=== PATIENT | female | born 1980 | race Caucasian/White ===

== ENCOUNTER 2017-10-04 10:23 | Emergency (ER) | payer SELFPAY ==
[2017-10-04 12:06] LABS: Eosinophils % (Auto) 0.9 % (0.0-4.3)
[2017-10-04 12:18] LABS: Alanine Aminotransferase 28 units/L (7-56); Albumin/Globulin Ratio 1.6 %; Alkaline Phosphatase 65 units/L (35-129); Anion Gap 21 mmol/L; BUN/Creatinine Ratio 23; Blood Urea Nitrogen 9 mg/dL (7-17); Calcium 8.9 mg/dL (8.4-10.2); Carbon Dioxide 18 mmol/L (22-30); Chloride 102.9 mmol/L (98-107); Glucose 179 mg/dL (65-100); Potassium 4.6 mmol/L (3.6-5.0); Sodium 137 mmol/L (137-145); Total Protein 6.5 g/dL (6.3-8.2)
[2017-10-04 12:22] LABS: Bilirubin,Direct < 0.2 mg/dL (0-0.2); Bilirubin,Indirect 0.1 mg/dL
[2017-10-04 12:24] LABS: Hematocrit 33.3 % (30.3-42.9); Hemoglobin 10.9 gm/dl (10.1-14.3); Mean Corpuscular HGB Conc 33 % (30-34); Mean Corpuscular Hemoglobin 24 pg (28-32); Mean Corpuscular Volume 72 fl (79-97); Platelet Count 379 K/mm3 (140-440); Red Blood Count 4.61 M/mm3 (3.65-5.03); Red Cell Distribution Width 18.5 % (13.2-15.2); White Blood Count 7.9 K/mm3 (4.5-11.0)
[2017-10-04 12:25] LABS: Basophils % (Auto) 0.4 % (0.0-1.8)
--- NOTE | 2017-10-04 12:31 | Emergency Department Report ---
ED General Adult HPI - General Stated complaint: SOB Time Seen by Provider: 10/04/17 10:55 Source: EMS Mode of arrival: Stretcher Limitations: No Limitations - History of Present Illness Initial comments: Patient states that she's had episodes of hyperventilation associated with passing out before. [place] this [place] 2 [place] without recent travel. Apparently she was in the room when she states she started breathing fast and passed out. EMS and/or the police had to breakdown the door. She was found conscious and transported to the emergency department as I am aware with acceptably normal vital signs. Initially on arrival she refused any diagnostic testing. However she was persuaded to do so later on. In fact initially she refused vital signs. She denies a history of any mental health problems other than hyperventilation. She denies being on any previous medications. She states that she had an a few months ago and 2 C-sections in the past but otherwise no hospitalizations. She states that she has heavy periods and has been previously told she is anemic. -: Gradual Quality: other (patient does not complain of pain at all.) Consistency: now resolved Improves with: none Worsens with: none Associated Symptoms: denies other symptoms Treatments Prior to Arrival: none - Related Data Previous Rx's Medication Instructions Recorded Last Taken Type Ferrous Gluconate [Fergon 325 MG 325 mg PO TID #20 tablet 10/04/17 Unknown Rx tab] Allergies Allergy/AdvReac Type Severity Reaction Status Date / Time No Known Allergies Allergy Verified 10/04/17 11:22 ED Review of Systems ROS: Stated complaint: SOB Other details as noted in HPI Constitutional: denies: chills, fever Eyes: denies: eye pain, eye discharge, vision change ENT: denies: ear pain, throat pain Respiratory: shortness of breath. denies: cough, wheezing Cardiovascular: denies: chest pain, palpitations Endocrine: no symptoms reported Gastrointestinal: denies: abdominal pain, nausea, diarrhea Genitourinary: denies: urgency, dysuria, discharge Musculoskeletal: denies: back pain, joint swelling, arthralgia Skin: denies: rash, lesions Neurological: denies: headache, weakness, paresthesias Psychiatric: denies: anxiety, depression Hematological/Lymphatic: denies: easy bleeding, easy bruising ED Past Medical Hx - Past Medical History Previous Medical History?: Yes - Surgical History Past Surgical History?: Yes Additional Surgical History: x2; one ; one spontaneous - Social History Smoking Status: Never Smoker Substance Use Type: None - Medications Home Medications: Home Medications Medication Instructions Recorded Confirmed Last Taken Type Ferrous Gluconate [Fergon 325 MG 325 mg PO TID #20 tablet 10/04/17 Unknown Rx tab] ED Physical Exam - General Limitations: No Limitations General appearance: alert, in no apparent distress - Head Head exam: Present: atraumatic, normocephalic - Eye Eye exam: Present: normal appearance, PERRL, EOMI. Absent: scleral icterus - ENT ENT exam: Present: mucous membranes moist - Neck Neck exam: Present: normal inspection. Absent: tenderness, meningismus - Respiratory Respiratory exam: Present: normal lung sounds bilaterally. Absent: respiratory distress - Cardiovascular Cardiovascular Exam: Present: regular rate, normal rhythm. Absent: systolic murmur, diastolic murmur, rubs, gallop - GI/Abdominal GI/Abdominal exam: Present: soft, normal bowel sounds. Absent: distended, tenderness, guarding, rebound, rigid - Extremities Exam Extremities exam: Present: normal inspection - Back Exam Back exam: Present: normal inspection - Neurological Exam Neurological exam: Present: alert, oriented X3, CN II-XII intact. Absent: motor sensory deficit - Psychiatric Psychiatric exam: Present: normal mood, flat affect - Skin Skin exam: Present: warm, dry, intact, normal color. Absent: rash ED Course Vital Signs 10/04/17 10/04/17 10/04/17 10:58 11:01 11:04 Temperature 98.7 F Pulse Rate 65 66 72 Respiratory 32 H 23 33 H Rate Blood Pressure 105/70 Blood Pressure 105/70 [Left] O2 Sat by Pulse 100 Oximetry 10/04/17 10/04/17 10/04/17 11:15 11:18 11:30 Temperature Pulse Rate 70 72 Respiratory 21 19 20 Rate Blood Pressure 109/61 105/66 Blood Pressure [Left] O2 Sat by Pulse 100 100 100 Oximetry 10/04/17 10/04/17 10/04/17 11:45 12:00 12:15 Temperature Pulse Rate 71 67 68 Respiratory 26 H 22 23 Rate Blood Pressure 112/76 105/67 103/71 Blood Pressure [Left] O2 Sat by Pulse 100 100 100 Oximetry 10/04/17 10/04/1710/04/17 12:30 12:45 13:00 Temperature Pulse Rate 69 71 89 Respiratory 23 22 34 H Rate Blood Pressure 110/63 108/66 125/73 Blood Pressure [Left] O2 Sat by Pulse 100 100 100 Oximetry - Reevaluation(s) Reevaluation #1: Patient was observed in the emergency department. She literally had no complaints. Pulse oximetry was 100 100%. Her heart rate was in the 70s. She was a bit anemic but otherwise her laboratory testing was largely unremarkable. She was discharged in stable condition. 10/04/17 14:01 ED Medical Decision Making - Lab Data Result diagrams: 10/04/17 11:42 10/04/17 11:42 Laboratory Results - last 24 hr 10/04/17 10/04/17 11:42 11:42 [place] % (Auto) 7.1 Eos % (Auto) 0.9 [place] # 0.6 Eos # 0.1 Baso # 0.0 Seg Neutrophils % 61.5 Seg Neutrophils # 4.9 Sodium 137 Potassium 4.6 Chloride 102.9 Carbon Dioxide 18 L Anion Gap 21 BUN 9 Creatinine 0.4 L Estimated GFR > 60 BUN/Creatinine Ratio 23 Glucose 179 H Calcium 8.9 Total Bilirubin 0.30 AST 34 ALT 28 Alkaline Phosphatase 65 Total Protein 6.5 Albumin 4.0 Albumin/Globulin Ratio 1.6 Laboratory Results - last 24 hr 10/04/17 10/04/17 11:42 11:42 WBC 7.9 RBC 4.61 Hgb 10.9 Hct 33.3 MCV 72 L MCH 24 L MCHC 33 RDW 18.5 H Plt Count 379 Lymph % (Auto) 30.1 [place] % (Auto) 7.1 Eos % (Auto) 0.9 Baso % (Auto) 0.4 Lymph # 2.4 [place] # 0.6 Eos # 0.1 Baso # 0.0 Seg Neutrophils % 61.5 Seg Neutrophils # 4.9 Sodium 137 Potassium 4.6 Chloride 102.9 Carbon Dioxide 18 L Anion Gap 21 BUN 9 Creatinine 0.4 L Estimated GFR > 60 BUN/Creatinine Ratio 23 Glucose 179 H Calcium 8.9 Total Bilirubin 0.30 Direct Bilirubin < 0.2 Indirect Bilirubin 0.1 AST 34 ALT 28 Alkaline Phosphatase 65 Total Protein 6.5 Albumin 4.0 Albumin/Globulin Ratio 1.6 Laboratory Results - last 24 hr 10/04/17 10/04/17 10/04/17 11:42 11:42 13:07 WBC 7.9 RBC 4.61 Hgb 10.9 Hct 33.3 MCV 72 L MCH 24 L MCHC 33 RDW 18.5 H Plt Count 379 Lymph % (Auto) 30.1 [place] % (Auto) 7.1 Eos % (Auto) 0.9 Baso % (Auto) 0.4 Lymph # 2.4 [place] # 0.6 Eos # 0.1 Baso # 0.0 Seg Neutrophils % 61.5 Seg Neutrophils # 4.9 Sodium 137 Potassium 4.6 Chloride 102.9 Carbon Dioxide 18 L Anion Gap 21 BUN 9 Creatinine 0.4 L Estimated GFR > 60 BUN/Creatinine Ratio 23 Glucose 179 H Calcium 8.9 Total Bilirubin 0.30 Direct Bilirubin < 0.2 Indirect Bilirubin 0.1 AST 34 ALT 28 Alkaline Phosphatase 65 Total Protein 6.5 Albumin 4.0 Albumin/Globulin Ratio 1.6 Urine Color Yellow Urine Turbidity Clear Urine pH 7.0 Ur Specific [place] 1.010 Urine Protein <15 mg/dl Urine Glucose (UA) >=500 Urine Ketones Tr Urine Blood Neg Urine Nitrite Neg Ur Reducing Substances Not Reportable Urine Bilirubin Neg Urine Ictotest Not Reportable Urine Urobilinogen < 2.0 Ur Leukocyte Esterase Neg Urine WBC (Auto) 1.0 Urine RBC (Auto) 1.0 U Epithel Cells (Auto) 2.0 Urine Bacteria (Auto) 3+ Urine HCG, Qual Negative - EKG Data -: EKG Interpreted by Me EKG shows normal: sinus rhythm, axis, intervals, QRS complexes, ST-T waves Rate: normal - EKG Data Interpretation: other Critical care attestation.: If time is entered above; I have spent that time in minutes in the direct care of this critically ill patient, excluding procedure time. ED Disposition Clinical Impression: Vasovagal attack Anemia Qualifiers: Anemia type: unspecified type Qualified Code(s): D64.9 - Anemia, unspecified Disposition: - TO HOME OR SELFCARE Is pt being admited?: No Does the pt Need Aspirin: No Condition: Stable Instructions: Anemia (ED) Additional Instructions: Follow-up with primary care physician. Return any further problem. Prescriptions: Ferrous Gluconate [Fergon 325 MG tab] 325 mg PO TID #20 tablet Referrals: KIERSTEN BISHOP MD [Staff Physician] - 2-3 Days CAROLINE RENTERIA MD [Primary Care Provider] - 2-3 Days [facility] [Provider Group] - 3-5 Days Time of Disposition: 14:16
[2017-10-04 13:34] LABS: Bacteria,Urine 3+ /HPF (Negative); Bilirubin,Urine NEG (Negative); Blood,Urine NEG (Negative); Ketones,Urine TR mg/dL (Negative); Leukocyte Esterase,Urine NEG (Negative); Nitrite,Urine NEG (Negative); Protein,Urine <15 mg/dL mg/dL (Negative); Urobilinogen,Urine < 2.0 mg/dL (<2.0)
[2017-10-04 14:39] VITALS: BP 106/65
--- NOTE | 2017-10-04 14:55 | XRay Report ---
AP CHEST: HISTORY: Difficulty in breathing AP view of the chest demonstrates a normal mediastinal and cardiac contour with clear lungs and normal bony and soft tissue structures. IMPRESSION: Unremarkable AP chest.
== END 2017-10-04 14:40 | disposition home or self-care (01) ==
LOC: ED 10:23
DX: R55 Syncope and collapse (principal); D64.9 Anemia, unspecified; R06.02 Shortness of breath; R06.4 Hyperventilation
CPT/HCPCS: 36415; 71010; 80048; 80074; 81001; 81025; 85025; 93005; 93010